=== PATIENT | female | born 1935 | race African-American/Black ===

== ENCOUNTER 2024-10-19 12:56 | Outpatient (AMB) | payer MEDICARE, SELFPAY ==
--- NOTE | 2024-10-19 13:04 | HO.SPINEOV ---
Vital Signs 10/19/24 13:08 Height 5 ft 5 in Weight 135 lb BMI 22.5 Intake Visit Reasons: LPB Intake Note: Mrs. Mathew is here today c/o Low back pain. 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 She is a very nice 89-year-old female presents to the office today for evaluation of back pain and bilateral lower extremity pain with standing and walking which gets better if she sits. The component of back pain is centered more on the left and will radiate down to the sacral region. Superimposed on this is a feeling of fatigue and unsteadiness on her legs when she stands and walks that makes her feel like she is going to fall down. It is very unsettling just stressing kind of symptom. She has good to walk about a half a mi and then she will have to sit. She generally can travel with her without issues and can walk around the airports reasonably well. No tingling or numbness. No cauda equina symptoms. The patient underwent an injection and unfortunately it was more painful than it was helpful so she did not return for another 1. She underwent physical therapy with no real improvement. She is unable to take anti-inflammatories but things like Tylenol etc. do not offer her any relief. She comes in today with an MRI showing lumbar stenosis amongst other degenerative changes. PMH: Recently developed diabetes with her A1c around 8, hypertension that is well controlled but other than that she has been very reasonably healthy. She had an abdominal surgery for what sounds like an emergency volvulus where they did resection of part of her small intestine and took her uterus out of the same time. Social hx: She has not smoke, she does drink wine daily, no recreational drugs Medications:[] Allergies: Iodine, penicillins, shellfish and codeine Physical exam: Awake alert oriented no acute distress, able to stand and walk in the hallways independently, get up on the examining table without assistance. Strength is full in bilateral lower extremities, reflexes diminished bilaterally. Imaging review: Lumbar MRI done at [facility] shows evidence of multilevel degenerative disc disease. At L5-S1 she has a severely collapsed disc and what looks like auto fusion. Above that at L4-5 she has a grade 1 spondylolisthesis with moderate to severe central canal stenosis. At L3-4 she also has moderate stenosis. She has significant facet arthropathy at L4-5. Impression: 89-year-old female presents for evaluation of back pain as well as bilateral lower extremity discomfort, weakness and feeling like her legs will give out when she is walking. I sat down and reviewed her imaging with her and had a lengthy conversation about the anatomy of her spine. I think we have to separate this into 2 distinct categories. The 1st is the back pain, which is part of her discomfort and pain syndrome but I do not get the sense is really driving her here to the office. I explained to her that fixing back pain with surgery at her age is unrealistic. Usually that involve spinal instrumentation with screws and rods and at her age the bone quality is usually not sufficient to hold up, and the recovery from the procedure may pose some risk. In the end, the success rate for back pain with surgery is only 60-70% even in an optimum situation so I do not think it is realistic if we focus our attention on fixing her back pain. The 2nd and I think more important goal that we could look at would be to make her walking more steady and take away the feeling of her legs wanting to give out when she is walking. I think that is coming from the stenosis at L4-5 and maybe to a lesser degree L3-4. Typically that is something Dr. Munoz would treat with a simple decompression. We have done patient's into their upper 80s and even some 90-year-old with this procedure and they have done well. The anesthesia's about an hour long and the recovery is quite short. The success rate is 90%. This hinges however, on whether or not that L4-5 segment is unstable in a vertical position. I would need to get a set of flexion-extension x-rays to evaluate this more closely, as doing a simple decompression in the setting of a unstable spondylolisthesis could make it worse. Right now, the patient does not have any interest in surgery as the symptoms are not that bad to a level where she is willing to risk general anesthesia. This is certainly reasonable. It is possible that the symptoms will just stay the same and she can continue to live on like she has right now and that would be acceptable. She would like to call me down the road if she wishes to consider surgery. In the interim I will review this with Dr. Munoz to see if he has any other thoughts. Thank you for allowing us to care for your patient. The total time spent with this visit with this patient was 45 minutes reviewing history, physical exam, lumbar imaging review, and implementation of treatment plan or further diagnostic testing David Munoz MD,PhD [facility] Orders: Orders XR lumbar spine 4V min Today M43.16 - Spondylolisthesis, lumbar region Coding Level of Care Code New Pt Level 4 (71153) Diagnoses Spondylolisthesis, lumbar region M43.16
[2024-10-19 13:08] VITALS: BMI 22.5
--- OUTSIDE RECORDS SUMMARY | 2024-10-19 13:12 | XMS_ITS | Patient Health Record ---
Author Organization [facility] Address [address] [place], [place] [id number] Care Team Providers Care Grip Wrapper Name Role Phone Augusto Hernadez [phone] Allergies Allergen (clinical drug ingredient) Drug/Non Drug Allergy documented on EMR Reaction Allergy Type Onset Date Status Iodine Unknown Drug Allergy Active penicillamine Penicillamine Unknown Drug Allergy Active Reason For Referral No Information Medications Medication SIG (Take, Route, Fr equency, Duration) Notes Start Date End Date Status Tessalon Perles 100 MG 1 capsule as need ed Orally Three times a day 04/02/2017 Active Estradiol Active Zithromax Z-Milton 250 MG 2 tablets on the first day, then 1 tablet daily for 4 days Orally Once a day; Duration: 5 day(s) 04/02/2017 Active hydroCHLOROthiazide Active Atorvastatin Calcium Active diazePAM Active Social History Tobacco Use: Social History Observation Description Date Details (start date - stop date) Former Smoker NA - NA Tobacco Use/Smoking Question Answer Notes Are you a former smoker How long has it been since you last smoked? > 10 years Problems Problem Type SNOMED Code ICD Code Onset Dates Problem Status W/U Status Risk Notes Problem Acute laryngitis (6492529) Acute laryngitis (J04.0) Active confirmed Plan Of Treatment No Information Insurance Providers Payer Name Payer Address Payer Phone Subscriber Number Group Number Insured Name Patient Relationship to Insured Coverage Start Date Coverage End Date MEDICARE (F) [address] [place] [address] [id number] Farideh Tiwari Self - patient is the insured [facility] (G) [id number] [address] [place] [address] [id number] Farideh Tiwari Self - patient is the insured Medical (General) History Medical History History ICD Code hypertension Pre- diabetic hyperlipidemia Surgical History Surgery Date(Month/Year) small bowel resection 09/2015 hysterectomy 09/2015 Hospitalization History Reason Date(Month/Year) see above surgery
== END 2024-10-19 13:50 | disposition home or self-care (01) ==
LOC: HO.HNS 12:56
PROVIDERS: PCP Family Medicine; Visit Provider Physician Assistant
DX: M43.16 Spondylolisthesis, lumbar region (principal)
CPT/HCPCS: 99204

== ENCOUNTER 2024-10-19 12:56 | Outpatient (REF) | payer MEDICARE, SELFPAY ==
--- NOTE | ~2024-10-19 | XR_ITS ---
CLINICAL HISTORY: M43.16 - Spondylolisthesis, lumbar region --- Additional Notes or Special Instructions: standing, a p, lateral with flex ext views 4 views lumbar spine Comparison: None provided Findings: 8 mm anterolisthesis of L4 on L5. Straightening of the normal lumbar lordosis. Very slight rightward curvature of the lumbar spine. No acute fractures or dislocation. Multilevel disc height loss with reactive endplate change and osteophyte formation greatest at L4-5 and L5-S1. Lower lumbar facet hypertrophy. IMPRESSION: Multilevel degenerative change as described. This document has been electronically signed by: Rossy Beauchamp MD on 10/20/2024 16:53:17
--- OUTSIDE RECORDS SUMMARY | 2024-10-19 13:58 | XMS_ITS | Encounter Summary ---
Author Organization [facility] Address [address] [place] [phone] Phone Care Team Providers Care Baggage Checker Name Role Phone Osito Kearns MD Primary Care Provider Josep Kearns MD Unavailable [phone] Estiven Millard MD Unavailable [phone] Michelle Berkowitz MD Unavailable [phone] Osito Kearns MD Unavailable [place] Leung MD Unavailable [phone] Osito Kearns MD Unavailable Judy Barragan MD Primary Care Provider + Judy Barragan MD Unavailable [phone] Encounter Details Date Type Department Care Team (Late st Contact Info) Description 01/02/2021 Procedure Pass [facility] [address] [place], [place] [id number] Social History Tobacco Use Types Packs/Day Years Used Date Smoking Tobacco: Former Cigarettes Q uit: 1985 Smokeless Tobacco: Never Alcohol Use Standard Drinks/Week Comments Yes 0 (1 standard drink = 0.6 oz pure alcohol) 1/2 bottle wine with dinner daily Child or Family Care Answer Date Record ed Do you have problems with on e of the following making it difficult for you to work, study, or receive health care? No 08/07/2020 Education Answer Date Recorded Are you interested in help w ith more adult education (for example, completing high school, GED, job training, learning the [place] language, technical skills, or developing parenting skills)? No 08/07/2020 Food Answer Date Recorded Within the past 6 months we worried whether our food would run out before we got money to buy more. Never True 08/07/2020 Within the past 6 months the food we bought just didn't last and we didn't have enough money to get more. Never True Residential Stability Answer Date Recor ded What is your housing situation today? I have abhijit sing 08/07/2020 How many times have you move d in the past 12 months? Zero (I did not move) 08/07/2020 06 Are you worried that in t he next 2 months, you may not have your own housing to live in? No 08/07/2020 Paying for Meds Answer Date Recorded Do you have trouble paying for medicines? No 08/07/2020 Paying Utility Bills Answer Date Record ed Do you have trouble paying your heating or elect ricity bill? No 08/07/2020 Transportation Answer Date Recorded Has the lack of transportati on kept you from medical appointments or from getting medications? No 08/07/2020 Unemployment Answer Date Recorded Are you currently unemployed or working on a part-time or temporary basis, and looking for work? No 08/07/2020 Comments Unknown Sex and Gender Information Value Date Recorded Sex Assigned at Female 06/11/2020 5:36 PM EDT Legal Sex Female 3:14 AM EDT Gender Identity Female 01/02/2021 11:05 AM EDT Sexual Orientation Straight 06/11/2020 5: 36 PM EDT documented as of this encounter Functional Status * Calculated C-SSRS Risk Score (Lifetime/Recent) Answer Date of Assessment Author No Risk Indicated 01/02/2021 11:06 AM EDT Vickie Ramsey, FREEDOM * White Suicide Severity Rating Scale (Screener/Recent Self-Report) Question Answer Date of Assessment Author 1. Wish to be (Past 1 Month) No 021 11:06 AM EDT Vickie Isaacs, RN 2. Non-Specific Active Suici meena Thoughts (Past 1 Month) No 01/02/2021 11:06 AM EDT Maribel Isaacs RN 6. Suicidal Behavior (Lifetime) No 11:06 AM EDT Vickie Isaacs RN documented as of this encounter Plan of Treatment Upcoming Encounters Date Type Department Care Team (Late st Contact Info) Description 11/15/2024 8:45 AM EDT Office Visit [facility] [address] [facility] 9th [place] [address] Hilario Bustillos MD [address] [facility] [address] [email or web address] 11/21/2024 11:30 AM EDT Office Visit [facility] [address] [place] [address] Judy Barragan MD [address] [facility] [address] [place] [address] [email or web address] documented as of this encounter Visit Diagnoses Not on filedocumented in this encounter Additional Health Concerns Assessment Noted Time PHQ-2 Depression Total Score: 0 06/12/19 21 5:57 PM EDT documented as of this encounter Care Teams Baggage Checker Relationship Specialty Start Date End Date Osito Kearns MD [address] [place] [address] [address] [place] [address] [email or web address] PCP - General 12/17/16 02/06/21 Judy Barragan MD [address] [place] [address] [address] [place] [address] [email or web address] PCP - General Family Medicine 02/07/21 Josep Kearns MD [address] [place] [address] [address] [place] [address] [email or web address] Historical LMR Provider 12/19/16 03/08/21 Estiven Millard MD [address] [place] [address] [email or web address] Historical LMR Provider 12/19/16 03/08/21 Michelle Berkowitz MD [address] [place] [address] [address] [place] [address] [email or web address] Historical LMR Provider 12/19/16 03/08/21 Osito Kearns MD [address] [place] [address] [address] [place] [phone] [email or web address] Historical LMR Provider 12/19/16 [place] Leung MD [address] [place] [address] Historical LMR Provider 12/19/16 2 Osito Kearns MD [address] [place] [address] [address] [place] [phone] [email or web address] Insurance Assigned Provider 03/27/17 Judy Barragan MD [address] [place] [address] [address] [place] [phone] [email or web address] Insurance Assigned Provider 06/05/23 documented as of this encounter Additional Source Comments The information contained in this document represents components of the legal health record. It is not the complete legal health record.[facility]
== END 2024-10-19 12:57 | disposition home or self-care (01) ==
LOC: HO.HOSX 12:56
PROVIDERS: PCP Family Medicine; Visit Provider Physician Assistant
DX: M43.16 Spondylolisthesis, lumbar region (principal)
CPT/HCPCS: 72110; 99202

== ENCOUNTER → 2024-10-19 13:53 | Outpatient (BNV) | payer MEDICARE, SELFPAY | PROVIDERS: PCP Family Medicine; Visit Provider Radiology Diagnostic Radiology | DX: M43.16 Spondylolisthesis, lumbar region (principal) | CPT/HCPCS: 72110 ==